=== PATIENT | male | born 1985 | race Caucasian/White ===

== ENCOUNTER 2017-12-26 23:41 | Emergency (ER) | payer OTHER, BC ==
[2017-12-26 23:48] VITALS: BP 132/79; PULSE 77; RESP 16; TEMP 97.7; O2SAT 95
--- NOTE | 2017-12-27 00:43 | EDPHY ---
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 Injury occurred about 1 hr ago. Last tetanus shot was about 4-5 years ago. No other injuries at this time. ROS: 10 point Review of Systems is negative except as noted in the HPI. Physical Exam: General: Awake, alert, no acute distress Left hand: Patient has a laceration in dorsal tip of his left thumb involving the nail bed. Has normal perfusion. Normal flexion extension. Skin: No rash - Personal History Current Tetanus/Diphtheria Vaccine: Yes Current Tetanus Diphtheria and Acellular Pertussis (TDAP): Yes - Medical/Surgical History Hx Asthma: No Hx Chronic Respiratory Disease: No Hx Diabetes: No Hx Cardiac Disease: No Hx Renal Disease: No Hx Cirrhosis: No Hx Alcoholism: No Hx HIV/AIDS: No Hx Splenectomy or Spleen Trauma: No - Social History Smoking Status: Never smoked Constitutional: Initial Vital Signs Temperature (C) 36.5 C 12/26/17 23:44 Heart Rate 77 12/26/17 23:44 Respiratory Rate 16 12/26/17 23:44 Blood Pressure 132/79 H 12/26/17 23:44 O2 Sat (%) 95 12/26/17 23:44 O2 Delivery Mode Room Air Allergies/Adverse Reactions: No Known Allergies Allergy (Unverified 12/26/17 23:44) Home Medications: Medication Instructions Recorded NK [No Known Home Meds] 12/26/17 Medical Decision Making Procedures: Procedure: Laceration repair. Verbal consent was obtained from the patient. The 1 cm laceration on the left thumb was anesthetized in the usual fashion. The wound was irrigated, draped and explored to its base with a gloved finger. The distal portion of the nail was removed for nail bed repair. There were no deep structures involved. No tendon injury was identified. The wound was repaired with 3, 5-0 Ethilon simple interrupted sutures. The wound repair was uncomplicated. The procedure was performed by myself. Departure - Departure Disposition: Home, Routine, Self-Care Clinical Impression: Laceration Condition: Good Instructions: Laceration (ED), Care For Your Stitches (ED) Additional Instructions: Sutures need to be removed in 7-10 days. You may return to the emergency department. Follow up with workman's Comp for any concerns. Referrals: Work Comp Referral [facility] [Outside] - As per Instructions
== END 2017-12-27 01:00 | disposition home or self-care (01) ==
PROC: 0HQJXZZ Repair Left Upper Leg Skin, External Approach (ICD-10-PCS; principal; 2017-12-26)
DX: S61.012A Laceration without foreign body of left thumb without damage to nail, initial encounter (principal); W45.8XXA Other foreign body or object entering through skin, initial encounter; Y92.89 Other specified places as the place of occurrence of the external cause; Y99.0 Civilian activity done for income or pay; Y93.89 Activity, other specified